=== PATIENT | female | born 1985 | race Caucasian/White ===

== ENCOUNTER 2018-12-25 04:33 | Emergency (ER) | payer OTHER, SELFPAY ==
--- NOTE | 2018-12-25 04:42 | ED.ABDPAIN ---
HPI - Abdominal Pain General Chief Complaint: Abdominal Pain Stated Complaint: 2weeks ago/extreme abd pain Time Seen by Provider: 12/25/18 04:39 Source: patient and family () Mode of arrival: ambulatory Limitations: no limitations History of Present Illness HPI narrative: This is a 33-year-old female comes in with complaint of right-sided lower abdominal pain. Patient is 2 weeks status post . Patient states that she had an uneventful stay at the hospital in [place]. She has not had any fevers or chills. She denies any nausea or vomiting. She states that she had not been having a lot of abdominal pain and had been improving. She had a bowel movement in Monday which was soft. She has been passing gas regularly. She denies any frequency or urgency or dysuria she continues to have some vaginal bleeding but she states it is mild and has not increased. 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 She has not noticed any new lumps, no new redness or skin changes. She has not appreciated any significant changes to her incision. She is otherwise healthy. Denies any prior surgeries. This is her 1st delivery. She is breast feeding. Related Data Previous Rx's Medication Instructions Recorded celecoxib [Celebrex] 50 mg PO BID PRN #14 cap 12/25/18 cephalexin [Keflex] 500 mg PO BID #10 cap 12/25/18 Allergies Allergy/AdvReac Type Severity Reaction Status Date / Time No Known Drug Allergies Allergy Verified 12/25/18 04:48 Review of Systems Review of Systems ROS Unobtainable: All systems reviewed & are unremarkable except as noted in HPI and below Constitutional Constitutional: Denies chills, Denies fever(s), Denies lethargy and Denies weakness Gastrointestinal Gastrointestinal: Reports abdominal pain, Denies melena, Denies hematochezia, Denies change in bowel habits, Denies tenesmus, Denies constipation, Denies diarrhea, Denies nausea and Denies vomiting Genitourinary Genitourinary: Reports abnormal vaginal bleeding (continued since , no new changes), Denies hematuria, Denies urinary frequency, Denies dysuria, Denies flank pain, Denies urinary incontinence, Denies urinary hesitancy and Denies urinary urgency Neurologic Neurologic: Denies weakness COUNT INCLUDES THE [facility] Surgical History (Updated 12/25/18 @ 06:11 by Abby Mg DO) S/P (Acute) Social History (Updated 12/25/18 @ 04:57 by Abby Mg DO) marital status: details: Lives in [place] number of children: 1 household members: spouse and children Smoking Status: Never smoker Social History (Updated 12/25/18 @ 04:57 by Abby Mg DO) marital status: details: Lives in [place] number of children: 1 household members: spouse and children Smoking Status: Never smoker Exam Narrative Exam Narrative: GENERAL: Alert and oriented x three, thin, well-appearing female in mild to moderate distress. HEENT: Head normocephalic, atraumatic, EOMI, pupils reactive, face symmetric, moist mucous membranes NECK: Supple, full range of motion CARDIOVASCULAR: Regular rate and rhythm without murmurs, rubs or gallops. RESPIRATORY: Breath sounds equal bilaterally, no wheezes rales or rhonchi. ABDOMEN: Soft, patient has right lower quadrant tenderness about 5 cm above her incision. Patient is mildly distended. Normoactive bowel sounds all 4 quadrants. No guarding or rebound, rigidity, no mass. Patient's incision is clean dry and appears intact. : No CVA tenderness EXTREMITIES: Normal range of motion, no clubbing or edema. Neurovascularly intact NEUROLOGICAL: Cranial nerves II through XII grossly intact. Moving all extremities SKIN: Warm, dry, no petechiae, no rashes or lesions. Initial Vital Signs Initial Vital Signs: Vital Signs Temperature 97.4 F L 12/25/18 04:45 Pulse Rate 63 12/25/18 04:45 Respiratory Rate 15 12/25/18 04:45 Blood Pressure 145/94 H 12/25/18 04:45 Pulse Oximetry 100 12/25/18 04:45 Course Orders Ordered: ED Orders 12/25/18 04:52 US abdomen limited Stat 12/25/18 05:00 Complete Blood Count AUTO DIFF Stat Comprehensive Metabolic Panel Stat Lipase Stat 12/25/18 06:11 Urine Culture Stat Urine Microscopic Stat Discontinued Medications Sodium Chloride (Normal Saline 0.9%) 1,000 mls @ 1,000 mls/hr IV BOLUS ONE Stop: 12/25/18 05:51 Last Infusion: 12/25/18 06:16 Dose: 0 mls/hr Documented by: Admin: 12/25/18 05:32 Dose: 1,000 mls/hr Documented by: CRISELDA Ketorolac Tromethamine (Toradol) 30 mg IV NOW ONE Stop: 12/25/18 04:56 Last Admin: 12/25/18 05:32 Dose: 30 mg Documented by: CRISELDA Vital Signs Vital signs: Vital Signs - 8 hr 12/25/18 04:45 Temperature 97.4 F L Pulse Rate 63 Respiratory Rate 15 Blood Pressure 145/94 H Pulse Oximetry 100 MDM - Abdominal Pain Lab Data Attestation: I reviewed the patient's lab results. Result diagrams: 12/25/18 05:00 12/25/18 05:00 Labs: Lab Results 12/25/18 12/25/18 12/25/18 Range/Units 05:00 05:00 06:11 WBC 6.0 (4.5-11.0) X10^3/uL RBC 4.15 (4.0-5.2) X10^6/uL Hgb 13.3 (12.0-16.0) g/dL Hct 39.5 (36-46) % MCV 95.2 (80-100) fL MCH 32.1 (26-34) PG MCHC 33.7 (30-36) % RDW 12.9 (11.6-14.8) % Plt Count 329 (150-400) X10^3/uL Neut % (Auto) 59.7 (50-75) % Lymph % (Auto) 29.4 (25-40) % [place] % (Auto) 6.3 (3-14) % Eos % (Auto) 3.6 (2-4) % Baso % (Auto) 1.0 (0-2) % Neut # (Auto) 3600 (4124-3648) /uL Lymph # (Auto) 1800 (2632-9254) /uL [place]kin # (Auto) 400 (0-900) /uL Eos # (Auto) 200 (0-450) /uL Baso # (Auto) 100 (0-100) /uL Sodium 138 (137-145) mmol/L Potassium 4.1 (3.4-5.1) mmol/L Chloride 101 (98-107) mmol/L Carbon Dioxide 26 (22-32) mmol/L BUN 13 (7-17) mg/dL Creatinine 0.70 (0.52-1.04) mg/dL Estimated GFR > 60.0 (>60) mL/min BUN/Creatinine Ratio 18.6 (6-22) Glucose 90 (70-100) mg/dL Calcium 9.9 (8.4-10.2) mg/dL Total Bilirubin 0.6 (0.2-1.3) mg/dL AST 26 (14-36) IU/L ALT 14 (9-52) IU/L Alkaline Phosphatase 132 H (38-126) U/L Total Protein 7.4 (6.3-8.2) g/dL Albumin 4.3 (3.5-5.0) g/dL Globulin 3.1 (1.7-4.1) g/dL Albumin/Globulin Ratio 1.4 (1.0-2.8) Lipase 128 (23-300) U/L Urine RBC None seen (0-5/HPF) Urine WBC 5-10/hpf H (0-5/HPF) Ur Squamous Epith Cells 1-5 /hpf (0-5/HPF) Urine Bacteria Few (2-10) H (None) Ur Culture Indicated? Specimen cultured Point of care testing: Point of Care Testing Test Results Negative Urine Dip Bedside Urine Glucose Negative Bedside Urine Bilirubin - Negative Bedside Urine Ketone - Negative Urine Specific [place] 1.015 Bedside Urine Occult Blood ++ Bedside Urine pH 6.0 Bedside Urine Protein - Negative Bedside Urine Urobilinogen - Negative Bedside Urine Nitrite - Negative Bedside Urine Leukocytes ++ 125 Esterase Imaging Data US - abdomen: My impression: prelim-difficulty to image abdomen 2nd to gas. Abdominal ultrasound does not show evidence of abnormality. No hematomas appreciated. MDM Narrative Medical decision making narrative: Patient is feeling more comfortable after Toradol. Her lab work does not show any major abnormalities. We discussed doing x-ray versus CT and patient would defer any further imaging at this time. She did ask about options for pain control that are nonnarcotic as well as for gas. Patient and I did discuss signs and symptoms and reasons to return emergently as we have not fully evaluated her abdomen and she was quite tender in her right lower quadrant so there is potential for infection status post , hematoma or seroma, appendicitis, or other causes such as colitis, etc. Patient's urine does show leukocyte esterase and bacteria. No nitrates. Discussed potentially have a UTI given prescription for Keflex but instructed she could call back and follow up her urine culture the next 48 hours if she preferred. Was also given a prescription for Celebrex as per infant risk this would be the best choice for a stronger and said option. And we discussed she can take simethicone as well. And she may try stool softener [id number] pain. Patient is comfortable with the plan and strict return precautions. Discharge Plan Departure Patient Disposition: Home Clinical Impression: Abdominal pain, S/P , UTI (urinary tract infection) Activity Restrictions/Additional Instructions: Follow up in the next 24-48 hours if your symptoms are not improving. You may take simethicone as needed for gas. Take antibiotics until gone. You may take celebrex 1-2 tabs every 12 hours as needed for pain. You may also take tylenol with this medication, you may take up to 1000mg every 8 hours as needed. Return to the emergency department for fevers greater than 100.4 F, worsening abdominal pain, persistent vomiting, black or bloody stools, if you are not having bowel movements and or not passing gas, appearing new flank or back pain, signs of infection at your incision site or other new or concerning symptoms. Prescriptions: New celecoxib [Celebrex] 50 mg capsule 50 mg PO BID PRN (Reason: pain) Qty: 14 RF: 0 cephalexin [Keflex] 500 mg capsule 500 mg PO BID Qty: 10 RF: 0
[2018-12-25 04:45] VITALS: BP 145/94; PULSE 63; RESP 15; TEMP 36.3; O2SAT 100; BMI 20.9
--- NOTE | 2018-12-25 04:52 | DI.US.S_ITS ---
PROCEDURE: US ABDOMEN LIMITED INDICATIONS: RIGHT LOWER QUADRANT PAIN 2 WEEKS POST TECHNIQUE: Real-time focused scanning was performed of the abdomen, with image documentation. COMPARISON: None. FINDINGS: Limited abdominal wall ultrasound demonstrates no hematoma or seroma at the site of section. No abnormal mass identified at site of section. IMPRESSION: No hematoma identified. Dictated by: Azalea Hallman MD, PhD on 12/25/2018 at 8:33 Approved by: Azalea Hallman MD, PhD on 12/25/2018 at 8:34
[2018-12-25] MEDS: KETOROLAC 60 MG/2 ML VIAL 30 MG IV (05:32)
[2018-12-25] MEDS: SODIUM CHLORIDE 0.9% 1,000 ML 1000 ML IV (05:32)
[2018-12-25 05:33] LABS: Add Manual Diff / Slide Review NO; Basophils Absolute Auto 100 /uL (0-100); Eosinophils Absolute Auto 200 /uL (0-450); Eosinophils Percent Auto 3.6 % (2-4); Hematocrit 39.5 % (36-46); Hemoglobin 13.3 g/dL (12.0-16.0); Lymphocytes Absolute Auto 1800 /uL (1100-4500); Lymphocytes Percent Auto 29.4 % (25-40); Mean Corpuscular HGB Conc 33.7 % (30-36); Mean Corpuscular Hemoglobin 32.1 PG (26-34); Mean Corpuscular Volume 95.2 fL (80-100); Monocytes Absolute Auto 400 /uL (0-900); Monocytes Percent Auto 6.3 % (3-14); Neutrophils Absolute Auto 3600 /uL (1500-7000); Neutrophils Percent Auto 59.7 % (50-75); Platelet Count 329 X10^3/uL (150-400); Red Blood Cell Count 4.15 X10^6/uL (4.0-5.2); Red Cell Distribution Width 12.9 % (11.6-14.8)
[2018-12-25 05:45] LABS: Alanine Aminotransferase 14 IU/L (9-52); Albumin 4.3 g/dL (3.5-5.0); Albumin Globulin Ratio 1.4 (1.0-2.8); Alkaline Phosphatase 132 U/L (38-126); Aspartate Aminotransferase 26 IU/L (14-36); BUN Creatinine Ratio 18.6 (6-22); Bilirubin Total 0.6 mg/dL (0.2-1.3); Blood Urea Nitrogen 13 mg/dL (7-17); Calcium 9.9 mg/dL (8.4-10.2); Carbon Dioxide 26 mmol/L (22-32); Chloride 101 mmol/L (98-107); Estimated Glomerular Filt Rate > 60.0 mL/min (>60); Globulin 3.1 g/dL (1.7-4.1); Glucose 90 mg/dL (70-100); HEMOLYSIS < 15 (0-50); Lipase 128 U/L (23-300); Potassium 4.1 mmol/L (3.4-5.1); Sodium 138 mmol/L (137-145); Total Protein 7.4 g/dL (6.3-8.2)
[2018-12-25 06:23] LABS: RBC Urine None Seen (0-5/HPF)
[2018-12-25 06:33] LABS: Bacteria Urine Few (2-10); Squamous Epithelial Cell Urine 1-5 /HPF (0-5/HPF); WBC Urine 5-10/HPF (0-5/HPF)
[2018-12-25 06:34] LABS: Culture Indicated Urine Specimen Cultured
[2018-12-25 06:49] VITALS: BP 119/92; PULSE 68; RESP 14; O2SAT 100
[2018-12-25 06:59] VITALS: BP 119/88; PULSE 65; RESP 14; TEMP 36.7; O2SAT 98
== END 2018-12-25 06:50 | disposition home or self-care (01) ==
PROVIDERS: Emergency Provider Emergency Medicine
DX: N39.0 Urinary tract infection, site not specified (principal); R10.9 Unspecified abdominal pain; Z98.891 History of uterine scar from previous surgery
CPT/HCPCS: 36591; 76705; 80053; 81003; 81015; 81025; 83690; 85025; 87086; 96361; 96374; 99283; 99284; J1885